=== PATIENT | male | born 1995 | race Caucasian/White ===

== ENCOUNTER 2021-12-26 12:28 | Emergency (ER) | payer OTHER, SELFPAY ==
[2021-12-26 12:36] VITALS: BP 148/79; PULSE 82; RESP 16; TEMP 36.5; O2SAT 100
--- NOTE | 2021-12-26 13:45 | ED.EAR ---
HPI - Ear Problem General Chief complaint: Ear Stated complaint: Ear Pain Time Seen by Provider: 12/26/21 13:36 Source: patient Mode of arrival: ambulatory Limitations: no limitations History of Present Illness HPI Narrative: Patient presents today complaining of right ear pain since this morning with absent hearing. Denies drainage. States he has had some upper respiratory symptoms since last week as well. Currently rates his ear pain 10/10 and has been taking Aleve with mild relief. Related Data Allergies Allergy/AdvReac Type Severity Reaction Status Date / Time No Known Allergies Allergy Verified 12/26/21 12:49 Review of Systems Review of Systems: CONSTITUTIONAL: Denies body aches, fever, chills, or sweats. EYES: Denies visual changes, redness, or discharge. ENT: Denies rhinorrhea, congestion, sore throat. + Right ear pain, absent hearing CARDIOVASCULAR: Denies chest pain, palpitations, or edema. RESPIRATORY: Denies cough or dyspnea. GASTROINTESTINAL: Denies abdominal pain, nausea, vomiting, or diarrhea. GENITOURINARY: Denies dysuria or hematuria. SKIN: Denies rash, itching, or wounds. MUSCULOSKELETAL: Denies back pain, joint pain, or myalgia. NEUROLOGIC: Denies headache, numbness, tingling, or weakness. PSYCH: Denies depression or anxiety. PMFSH Comments At time of signature, I have reviewed and agree with nursing past medical, surgical, social and family history unless otherwise noted. Please see nursing chart for further information. There is no relevant family history pertinent to the presenting complaint Exam Narrative: GENERAL: Well-appearing, well-nourished, and in no acute distress. HEAD: Normocephalic, atraumatic. EYES: EOMI. No redness or drainage. Conjunctivae normal. ENT: Mucous membranes pink and moist. Nares clear. No rhinorrhea. Left TM normal. Right TM erythematous and bulging with purulent material. NECK: Normal AROM. CHEST: No respiratory distress. EXTREMITIES: Normal range of motion. No edema. SKIN: Warm, dry, no rash. Capillary refill normal. Normal skin turgor. NEURO: No focal deficits. Alert and oriented x3. Gait steady. PSYCH: Normal affect. No signs of depression or anxiety. Course Course Level of Care: Express Care Visit Vital Signs Vital signs: Vital Signs Temperature 97.7 F 12/26/21 12:36 Pulse Rate 82 12/26/21 12:36 Respiratory Rate 16 12/26/21 12:36 Blood Pressure 148/79 H 12/26/21 12:36 Pulse Oximetry 100 12/26/21 12:36 Oxygen Delivery Room Air 12/26/21 12:36 Temperature 97.7 F 12/26/21 12:36 Pulse Rate 82 12/26/21 12:36 Respiratory Rate 16 12/26/21 12:36 Blood Pressure 148/79 H 12/26/21 12:36 Pulse Oximetry 100 12/26/21 12:36 Oxygen Delivery Room Air 12/26/21 12:36 Reviewed. Pt has been instructed to follow up with his PCP regarding his elevated blood pressure today. Medical Decision Making Differential Diagnosis Differential Diagnosis: Otitis media, otitis externa, ruptured TM, serous otitis, eustachian tube dysfunction, cerumen impaction, URI Vital Signs Vital Signs: Vital Signs Temperature 97.7 F 12/26/21 12:36 Pulse Rate 82 12/26/21 12:36 Respiratory Rate 16 12/26/21 12:36 Blood Pressure 148/79 H 12/26/21 12:36 Pulse Oximetry 100 12/26/21 12:36 Oxygen Delivery Room Air 12/26/21 12:36 Temperature 97.7 F 12/26/21 12:36 Pulse Rate 82 12/26/21 12:36 Respiratory Rate 16 12/26/21 12:36 Blood Pressure 148/79 H 12/26/21 12:36 Pulse Oximetry 100 12/26/21 12:36 Oxygen Delivery Room Air 12/26/21 12:36 Critical Care Time Critical Care Time Critical Care Time: No Discharge Plan Discharge Clinical Impression: Acute suppur right otitis media w/o spontan rupture tympanic membrane Patient Disposition: Home, Self-Care Condition: Stable Instructions: Antibiotic Form, Ear Infection (ED) Additional Instructions: You have been diagnosed with a right-sided e
== END 2021-12-26 13:55 | disposition home or self-care (01) ==
PROVIDERS: Emergency Provider Nurse Practitioner; PCP Family Medicine
DX: H66.001 Acute suppurative otitis media without spontaneous rupture of ear drum, right ear (principal)
CPT/HCPCS: 99213; G0463

== ENCOUNTER 2022-03-16 07:45 | Outpatient (CLI) | payer OTHER, SELFPAY ==
--- NOTE | 2022-03-29 18:45 | WPDHOMESLEEP ---
Sleep Study - Home Unattended Date of Study: 03/16/22 Ordering Provider: Nicki Leo, SALES PROMOTION COORDINATOR Interpreting Provider: Shelly Rogers, DO Home Sleep Study Type: Watch PAT Height: 1.96 m Weight: 133.81 kg Body Mass Index: 34.9 Neck Circumference (inches): 18.5 [place]: 5 Reason for Sleep Study Unrefreshing sleep Sleep History The patient is a 26-year-old male with hypertension, GERD and seasonal allergies that had a sleep study ordered by his primary care for evaluation of sleep apnea. 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 The patient denies awakening from sleep short of breath. He rarely awakens at night with heartburn, belching or cough. He frequently snores and is occasionally loud enough that others complain. He frequently has trouble sleeping when he has a cold. He denies waking up gasping for air throughout the night. He occasionally has breathing problems at night observed by himself or others. He denies sweating excessively at night. He rarely has heart palpitations or irregular heartbeats during the night. He rarely falls asleep during the day and never while driving. He denies cataplexy and hypnagogic / hypnopompic hallucinations. He rarely has trouble at school or work due to sleepiness. He rarely feels unable to move while waking up or falling asleep. He denies feeling afraid of going to sleep. He rarely has nightmares. He rarely remembers his dreams. He rarely has thoughts racing through his mind. He occasionally feels sad, depressed or anxious. He rarely has muscular tension. He occasionally notices parts of his body jerk. He denies kicking during the night. He denies having crawling and aching feelings in his legs as well as leg pain during the night. He denies grinding his teeth during sleep and awakening with morning jaw pain. He is occasionally bothered by pain during the day but denies being awakened by pain during the night. He occasionally wakes up feeling stiff in the morning. He rarely wakes up with sore achy muscles. He occasionally wakes up with pain in the neck, spine or other joints. He goes to bed at 9:30 p.m. on weekdays and at 10:30 p.m. on the weekends. It takes him 10 minutes to fall asleep. He wakes up 3-5 times throughout the night for unknown reasons. He is able to fall back asleep within a few minutes. He wakes up at 5:30 a.m. on weekdays between 5-6 a.m. on the weekends. He typically gets 6-7 hours of sleep per night. He will stay in bed for few minutes after waking up in the morning. He currently lives with his and 2-year-old child. He does not consume any caffeinated beverages within 2 hours of bedtime. He does not engage in physical exercise before bedtime. He will watch television before falling asleep. He denies taking naps in the afternoon or the evening. He drinks 20 oz of coffee per day. He denies tobacco, alcohol and recreational drug use. [facility] Past Medical History Medical History GERD (gastroesophageal reflux disease) Hypertension Medications Home Medications Medication Instructions Recorded Confirmed Type amoxicillin 875 mg-potassium 1 tablet PO Q12H 10 days #20 tabs 12/26/21 Rx clavulanate 125 mg tablet Sleep Procedure The sleep study was completed using WittlebeePAT a technically adequate device with seven channels: peripheral arterial tone, actigraphy, body position, snore, respiratory movement, pulse oximetry, sleep staging, and heart rate. Prior to using the device, the patient received verbal and written instructions for its application and was provided with the help desk phone number for additional telephonic instruction with 24-hour availability of qualified personnel to answer questions. The study was scored using [facility] guidelines. Sleep Architecture The patient had a total recording time of 8 hours 13 minutes and total sleep time of 7 hours 1 minute. The sleep efficiency w
[2022-03-29 18:55] VITALS: BMI 34.9
--- NOTE | 2022-06-24 07:54 | SLEEP ---
pt is struggling with machine
--- NOTE | 2022-08-24 14:01 | SLEEP ---
pt cannot tolerate pap therapy pt is considering a mouth guard for therapy
== END 2022-03-24 13:42 | disposition home or self-care (01) ==
PROVIDERS: PCP Family Medicine; Visit Provider Nurse Practitioner Adult Health
DX: G47.9 Sleep disorder, unspecified (principal); G47.33 Obstructive sleep apnea (adult) (pediatric)
CPT/HCPCS: 95800

== ENCOUNTER 2022-08-11 16:26 | Emergency (ER) | payer OTHER, SELFPAY ==
[2022-08-11 16:40] VITALS: BP 139/77; PULSE 92; RESP 12; TEMP 37.4; O2SAT 100
--- NOTE | 2022-08-11 16:52 | ED.EXTPRO ---
HPI - Extremity Problem General Chief complaint: Extremity Injury, Lower Stated complaint: Right Knee/Leg Pain Time Seen by Provider: 08/11/22 16:53 Source: patient, RN notes reviewed and old records reviewed Mode of arrival: ambulatory Limitations: no limitations History of Present Illness HPI Narrative: 27-year-old male presents to the [facility] with complaints of a bruise to the right rosas. States he noticed it about a week ago. Denies any injury. Full range of motion noted to the knee, ankle. Positive pedal pulse. Sensation intact to all 5 toes. Cap refill under 2 seconds Related Data Home Medications Medication Instructions Recorded Confirmed lisinopril 5 mg tablet 5 mg DAILY 08/11/22 08/11/22 Allergies Allergy/AdvReac Type Severity Reaction Status Date / Time No Known Allergies Allergy Verified 08/11/22 16:40 Review of Systems Review of Systems: All systems reviewed & are unremarkable except as noted in HPI and below Constitutional: Constitutional: Reports no additional constitutional complaints Eyes: Eyes: Reports no additional eye complaints ENT: Reports system reviewed and no additional complaints, except as documented Cardiovascular: Cardiovascular: Reports no additional cardiovascular complaints, Denies chest pain and Denies dyspnea Respiratory: Respiratory: Reports no additional respiratory complaints, Denies chest congestion, Denies cough and Denies dyspnea Gastrointestinal: Gastrointestinal: Reports no additional gastrointestinal complaints, Denies abdominal pain, Denies nausea and Denies vomiting Musculoskeletal: Musculoskeletal: Reports no additional musculoskeletal complaints Integumentary/Breasts: Skin/Breast: Reports as per HPI Neurologic: Reports system reviewed and no additional complaints, except as documented Psychiatric: Psychiatric: Reports no additional psychiatric complaints Allergic/Immunologic: Allergic/Immunologic: Reports no additional allergic/immunologic complaints [facility] Past Medical History Medical History GERD (gastroesophageal reflux disease) Hypertension Comments At the time of my signature, I reviewed and agree with the nursing past medical, surgical, social, and family history. There is no relevant family history pertinent to the patient complaint. Exam Const: General: cooperative, healthy appearing, comfortable, no acute distress, well developed, alert and well nourished Nutritional Appearance: well nourished and obese Orientation/consciousness: patient oriented x3 Limitations: no limitations HENMT: Head: normal to inspection Ears: hearing grossly normal bilaterally and external ears normal Face/Nose/Sinus: Normal external nose present, Normal nares present, Normal nasal mucous membranes and turbinates present and normal facial exam Face and sinus: normal facial exam Mouth: Yes Normal oral and palatal mucosa present, Yes lip normal and Yes moist mucous membranes Throat: posterior oropharynx normal and uvula midline Eyes: General: appearance normal, both eyes and all related structures Alignment and Position: alignment normal Periorbital: periorbital findings normal Conjunctivae: conjunctivae normal Pupils: Equal, round and reactive pupils present EOM: EOMs intact bilaterally Neck: Neck: normal visual inspection, full ROM, no lymphadenopathy and no meningeal signs Chest: Chest palpation & inspection: normal inspection of the chest Resp: Effort & Inspection: normal respiratory effort and able to speak in complete sentences Auscultation: clear to auscultation bilaterally, no crackles, no rales, no rhonchi and no wheezes Cardio: Rate: regular rate Rhythm: regular rhythm Back/Spine/Pelvis: Cervical Spine: cervical ROM normal Thoracic/Lumbar Spine: No thoracic spinal tenderness Skin: General skin exam: normal color and no rashes or lesions noted Lesions: no lesions Rashes: no rashes Wounds: n
== END 2022-08-11 17:08 | disposition home or self-care (01) ==
PROVIDERS: Emergency Provider Nurse Practitioner; PCP Physician Assistant
DX: S80.11XA Contusion of right lower leg, initial encounter (principal); X58.XXXA Exposure to other specified factors, initial encounter; K21.9 Gastro-esophageal reflux disease without esophagitis; I10 Essential (primary) hypertension
CPT/HCPCS: 99212; G0463

== ENCOUNTER 2023-02-11 06:56 | Outpatient (CLI) | payer OTHER, SELFPAY ==
--- NOTE | ~2023-02-11 | XR_ITS ---
XR chest 2V DATE: 02/11/2023 07:13 INDICATION: Shortness of breath, managed high blood pressure. TECHNIQUE: PA and lateral views COMPARISON: None FINDINGS: Normal heart size. No hilar or mediastinal enlargement. No pulmonary infiltrate or consolid ation, pleural effusion or pulmonary vascular congestion or pneumothorax. Included skeletal structures are unremarkable. IMPRESSION: Negative Reviewed, dictated and finalized at location A. IMPRESSION: Negative
[2023-02-11 07:20] LABS: Hematocrit 40.9 % (42.0-52.0); Hemoglobin 13.7 g/dL (14.0-18.0); Mean Corpuscular HGB Conc 33.5 g/dl (32-36); Mean Corpuscular Hemoglobin 32.6 pg (26-34); Mean Corpuscular Volume 97.4 fl (80-100); Platelet Count Result 254 k/mm3 (150-375); Red Cell Distribution Width 12.5 % (11.5-14.5); White Blood Count 6.8 K/mm3 (4.5-10.0)
[2023-02-11 07:21] LABS: Basophils Percent Auto 0.4 % (0.2-1.2); Eosinophils Absolute Auto 0.2 K/mm3 (0-0.3); Eosinophils Percent Auto 2.3 % (0-4.4); Immature Granulocyte Absolute 0.03 K/mm3 (0.00-0.031); Immature Granulocyte Percent A 0.4 % (0-0.5); Lymphocytes Absolute Auto 1.82 K/mm3 (0.9-3.2); Lymphocytes Percent Auto 26.7 % (18.3-44.2); Monocytes Absolute Auto 0.5 K/mm3 (0.1-0.6); Monocytes Percent Auto 7.3 % (2.6-8.5); Neutrophils Absolute Auto 4.3 K/mm3 (1.3-6.7); Neutrophils Percent Auto 62.9 % (45.5-73.1)
[2023-02-11 07:33] LABS: Alanine Aminotransferase 29 U/L (6-50); Albumin Level 4.3 g/dL (3.5-5.1); Alkaline Phosphatase 49 U/L (38-126); Anion Gap 7 mmol/L (8-16); Aspartate Amino Transferase 29 U/L (17-59); Bilirubin,Total 1.1 mg/dL (0.2-1.3); Blood Urea Nitrogen 13 mg/dL (9-20); Calcium 8.8 mg/dL (8.4-10.2); Carbon Dioxide 28 mmol/L (22-30); Chloride 103 mmol/L (98-107); Cholesterol 143 mg/dL (0-200); Estimated Glomerular Filt Rate > 60; Glucose 94 mg/dL (65-110); HDL Direct 37 mg/dL; Potassium 3.9 mmol/L (3.4-5.0); Sodium 138 mmol/L (137-145); Triglycerides 86 mg/dL (<150)
[2023-02-11 07:44] LABS: LDL Cholesterol Direct 82 mg/dL
[2023-02-11 08:37] LABS: Folic Acid 17.5 ng/mL (2.76->20)
== END 2023-02-11 06:57 | disposition home or self-care (01) ==
PROVIDERS: PCP Nurse Practitioner Adult Health; Visit Provider Nurse Practitioner Adult Health
DX: R06.02 Shortness of breath (principal); I10 Essential (primary) hypertension; E53.8 Deficiency of other specified B group vitamins
CPT/HCPCS: 36415; 71046; 80053; 80061; 82607; 82746; 84443; 85025

== ENCOUNTER 2023-03-08 14:53 | Outpatient (CLI) | payer OTHER, SELFPAY ==
--- NOTE | 2023-03-08 16:26 | WPDPFTINT ---
PFT Procedure Performed PFT Procedure Performed Spirometry with Pre/Post Bronchodilator Plethysmography (Lung Vol) Diffusing Cap (DLCO) Flow Vol Loop PFT Interpretation This is a pulmonary function test with spirometry, plethysmography and diffusing capacity. The test was performed and results interpreted in accordance with the 2019 and 2005 ATS/ERS Task Force guidelines respectively using the Global Lung Function Initiative-2012 reference equations. Patient demonstrated good effort and cooperation. Reproducibility criteria were met. The quality of the spirometry maneuver was Grade A. Findings: Spirometry: The contour the inspiratory and expiratory flow tracing are normal. The FVC is 6.56 L, 95% predicted. The FEV1 is 5.02 L, 90% predicted. The FEV1: FVC ratio 77%. Plethysmography: The total lung capacity is 8.87 L, 106% predicted. The functional residual capacity is 3.44 L, 81% predicted. The residual volume is 2.31 L, 116% predicted. Diffusing capacity: The diffusing capacity unadjusted for hemoglobin and carboxyhemoglobin is 45.5, 118% predicted. The diffusing capacity adjusted for alveolar volume is 5.85, 122% predicted. Impression: The spirometry is normal without evidence of an obstructive abnormality. The lung volumes are normal. The diffusing capacity is normal. There are no prior studies for comparison
== END 2023-03-08 14:54 | disposition home or self-care (01) ==
LOC: ANHPFT 14:54
PROVIDERS: PCP Nurse Practitioner Adult Health; Visit Provider Nurse Practitioner Adult Health
DX: R06.02 Shortness of breath (principal)
CPT/HCPCS: 94375; 94726; 94729

== ENCOUNTER 2024-02-13 08:36 | Outpatient (CLI) | payer OTHER, SELFPAY ==
[2024-02-13 18:54] LABS: Basophils Percent Auto 0.6 % (0.2-1.2); Eosinophils Absolute Auto 0.1 K/mm3 (0-0.3); Eosinophils Percent Auto 1.6 % (0-4.4); Hematocrit 46.3 % (42.0-52.0); Hemoglobin 15.3 g/dL (14.0-18.0); Immature Granulocyte Absolute 0.04 K/mm3 (0.00-0.031); Immature Granulocyte Percent A 0.6 % (0-0.5); Lymphocytes Absolute Auto 1.58 K/mm3 (0.9-3.2); Lymphocytes Percent Auto 22.7 % (18.3-44.2); Mean Corpuscular Hemoglobin 33.6 pg (26-34); Mean Corpuscular Volume 101.8 fl (80-100); Mean Platelet Volume 10.9 fl (7.4-10.4); Monocytes Absolute Auto 0.4 K/mm3 (0.1-0.6); Neutrophils Absolute Auto 4.8 K/mm3 (1.3-6.7); Neutrophils Percent Auto 68.5 % (45.5-73.1); Platelet Count Result 270 k/mm3 (150-375); Red Blood Count 4.55 M/mm3 (4.6-6.20); Red Cell Distribution Width 13.4 % (11.5-14.5)
[2024-02-13 19:35] LABS: Alanine Aminotransferase 28 U/L (6-50); Albumin Level 4.6 g/dL (3.5-5.1); Alkaline Phosphatase 57 U/L (38-126); Anion Gap 10 mmol/L (4-12); Aspartate Amino Transferase 70 U/L (17-59); Bilirubin,Total 0.6 mg/dL (0.2-1.3); Blood Urea Nitrogen 12 mg/dL (9-20); Calcium 9.5 mg/dL (8.4-10.2); Carbon Dioxide 27 mmol/L (22-30); Chloride 101 mmol/L (98-107); Cholesterol 147 mg/dL (0-200); Estimated Glomerular Filt Rate > 60; Glucose 90 mg/dL (65-110); HDL Direct 41 mg/dL; Magnesium 2.1 mg/dL (1.6-2.3); Potassium 4.3 mmol/L (3.4-5.0); Sodium 138 mmol/L (137-145); Triglycerides 87 mg/dL (<150)
[2024-02-13 19:46] LABS: LDL Cholesterol Direct 77 mg/dL
[2024-02-13 20:43] LABS: Hemoglobin A1C 4.9 % (<5.7)
== END 2024-02-13 08:37 | disposition home or self-care (01) ==
PROVIDERS: PCP Nurse Practitioner Adult Health; Visit Provider Nurse Practitioner Adult Health
DX: E53.8 Deficiency of other specified B group vitamins (principal); I10 Essential (primary) hypertension; E66.9 Obesity, unspecified
CPT/HCPCS: 36415; 80053; 80061; 82607; 83036; 83735; 84443; 85025

== ENCOUNTER 2024-11-09 22:07 | Emergency (ER) | payer OTHER, SELFPAY ==
[2024-11-09 22:08] VITALS: BP 158/88; PULSE 107; RESP 16; TEMP 36.3; O2SAT 100
--- OUTSIDE RECORDS SUMMARY | 2024-11-09 22:10 | XMS_ITS | Clinical Summary ---
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 CLERK Gender Identity Not on file Sexual Orientation Not on file Last Filed Vital Signs Vital Sign Reading Time Taken Comments Blood Pressure 148/85 10/08/2022 8:00 PM CDT Pulse 85 10/08/2022 8:00 PM CDT Temperature 37.1 C (98.7 F) 10/08/2022 6:20 PM CDT Respiratory Rate 23 10/08/2022 8:00 PM CDT Oxygen Saturation 99% 10/08/2022 8:00 PM CDT Inhaled Oxygen Concentration - - Weight 138.1 kg (304 lb 7.3 oz) 10/08/2022 5:06 PM CDT Height 195.6 cm (6' 5 ) 10/08/2022 5:06 PM CDT Body Mass Index 36.1 10/08/2022 5:06 PM CDT Plan of Treatment Health Maintenance Due Date Last Done Comments Depression Screening 1995 Hepatitis C Screening 1995 Varicella Vaccines (1 of 2 - 13+ 2-dose series) 2006 Regular Well Visit/Exam 18-64 2011 Influenza Vaccine (Season Ended) 2025 DTaP/Tdap/Td Vaccine (7 - Td or Tdap) 08/10/2029 08/10/2019, 01/28/2008, 09/08/1994, Additional history exists Hepatitis B Screening Completed 02/04/1994, 994 HPV Vaccines Aged Out No longer eligi ble based on patient's age to complete this topic Pneumococcal vaccine <65 Aged Out No longer eligible based on patient's age to complete this topic Insurance [facility] CHOICE PLUS [facility] CHOICE PLUS Care Teams Hydrotreater Operator Relationship Specialty Start Date End Date Sangeetha Mahan PA [address] [place] [address] [place] [address] PCP - General 10/08/22
--- OUTSIDE RECORDS SUMMARY | 2024-11-09 22:10 | XMS_ITS | Clinical Summary ---
Author Organization [facility] Care Team Providers Care Vp Ancillary Name Role Phone Unavailable Primary Care Provider Unavailabl e Social History Tobacco Use Types Packs/Day Years Used Date Smoking Tobacco: Never Assessed Sex and Gender Information Value Date Recorded Sex Assigned at Not on file Legal Sex Male 8:00 AM CDT Gender Identity Not on file Sexual Orientation Not on file Plan of Treatment Health Maintenance Due Date Last Done Comments Hepatitis C Virus (HCV) Screening 1995 Hepatitis B Immunization (3 of 3 - 3-dose series) 04/01/1994 02/04/1994, 1993 Influenza Immunization (#1) 2024 SARS-COV-2 Immunization ( season) 2024 Respiratory Syncytial Virus (RSV) Immunization (Adult) (1 - 1-dose 75+ series) 2068 Meningococcal Immunization (ACWY) Aged Out 01/28/2008 No longer eligible based on patient's age to complete this topic DTaP/Tdap/Td Immunization Discontinued 2019, 01/28/2008, 09/08/1994, Additional history exists TdaP Immunization Completed 08/10/2019, 01/28/2008 Pneumococcal Immunization Combined Aged Out No longer eligible based on patient's age to complete this topic Rotavirus Immunization Aged Out No lo nger eligible based on patient's age to complete this topic
--- OUTSIDE RECORDS SUMMARY | 2024-11-09 22:10 | XMS_ITS ---
Author Organization [facility] Address [address] [place], [place] [id number] Care Team Providers Care Animal Herder Name Role Phone MAMTA Baptiste Unavailable [phone] Jackson Thomason Unavailable Unavailable LATRICE HERRERA Unavailable [phone] REASON FOR VISIT ft doing well Encounters Encounter Location Date Provider Diagnosis [facility] [place] [address] [place], [place] [id number] 12/04/2023 LATRICE HERRERA Plan Of Treatment No Information Progress Notes * ZAYRA SAMANIEGODOB:1995 (29 yo M)Acc No.[id number]:12/04/2023 Patient: ZAYRA GUERRERO Provider: Chase Herrera DPM :1995 A ge:28 Y S ex:Male Date:12/04/2023 Address:[address] [place], [place] [id number] Subjective: * Chief Complaints: * 1 . Ft doing well. * Medical History: Objective: * Vitals: Assessment: Plan: * Treatment: * Billing Information: * Visit Code: * Procedure Codes: * Electronic signature of LATRICE HERRERA DPM on 11/09/2024 at 10:09 PM CDT Sign off status: Pending * Provider: Chase Herrera DPM Date: 12/04/2023 Generated for Printi ng/Faxing/eTransmitting on: 11/09/2024 10:09 PM CDT
--- OUTSIDE RECORDS SUMMARY | 2024-11-09 22:10 | XMS_ITS | Data Portability ---
Author Organization [place] - [employer], Main Office Address [address] [place] [address] Assessment No assessment recorded. Plan of Treatment Reminders Order Date Submit Date Provider Last Modified By Organization Details Last Modified Time Details Appointments None recorded. Lab vitamin B12 + folate, serum or blood 023 023 [id number] [facility] (Lab), [address] [place], [address], 09:03:20 Referral None recorded. Procedures None recorded. Surgeries None recorded. Imaging None recorded. Medication Orders None recorded. Patient TargetsNo targets recorded. Patient InstructionsNo instructions recorded. Reason for Referral None Reported. Results Created Date Observation Date Name Description Value Unit Range Abnormal Flag Note LastModifiedBy Organization Detail LastModifiedTime 02/04/20 22 02/04/2022 VITAM IN B12/F OLATE , SERUM PANEL vitamin B12 299 pg/mL 200-11 00 normal Pleas e Note: Altho ugh the refer ence range for vitam in B12 is 200-1 100 pg/mL , it has been repor lesli that betwe en 5 and 10% of patie nts with value s betwe en 200 and 400 pg/mL may exper ience neuro psych iatri c and hemat ologi c abnor malit ies due to occul t B12 defic iency ; less than 1% of patie nts with value s above 400 pg/mL will have sympt oms. Not Available [employer] [facility] [address], [place], [address], 02/04/2022 07:10:16 02/04/20 22 02/04/2022 VITAM IN B12/F OLATE , SERUM PANEL folate, serum 11.8 NG/mL normal Refer ence Range Low: <3.4 Borde rline : 3.4-5 .4 Karlene l: >5.4 Not Available [address], [address], 02/04/2022 07:10:16 02/04/20 22 02/04/2022 TSH TSH 2.44 mIU/L 0.40-4 .50 normal Not Available [address], [address], 02/04/2022 07:10:15 02/04/20 22 02/04/2022 CBC (INCL UDES DIFF/ PLT) white blood cell count 9.6 thous and/u L 3.8-10 .8 normal Not Available [address], [address], 02/04/2022 07:10:15 02/04/20 22 02/04/2022 CBC (INCL UDES DIFF/ PLT) red blood cell count 4.68 donald on/uL 4.20-5 .80 normal Not Available [address], [address], 02/04/2022 07:10:15 02/04/20 22 02/04/2022 CBC (INCL UDES DIFF/ PLT) hemoglobin 15.0 g/dL 13.2-1 7.1 normal Not Available [address], [address], 02/04/2022 07:10:15 02/04/20 22 02/04/2022 CBC (INCL UDES DIFF/ PLT) hematocrit 45.2 % 38.5-5 0.0 normal Not Available [address], [address], 02/04/2022 07:10:15 02/04/20 22 02/04/2022 CBC (INCL UDES DIFF/ PLT) MCV 96.6 fL 80.0-1 00.0 normal Not Available [address], [address], 02/04/2022 07:10:15 02/04/20 22 02/04/2022 CBC (INCL UDES DIFF/ PLT) MCH 32.1 pg 27.0-3 3.0 normal Not Available [address], [address], 02/04/2022 07:10:15 02/04/20 22 02/04/2022 CBC (INCL UDES DIFF/ PLT) MCHC 33.2 g/dL 32.0-3 6.0 normal Not Available [address], [address], 02/04/2022 07:10:15 02/04/20 22 02/04/2022 CBC (INCL UDES DIFF/ PLT) RDW 12.4 % 11.0-1 5.0 normal Not Available [address], [address], 02/04/2022 07:10:15 02/04/20 22 02/04/2022 CBC (INCL UDES DIFF/ PLT) platelet count 281 thous and/u L 140-40 0 normal Not Available [address], [address], 02/04/2022 07:10:15 02/04/20 22 02/04/2022 CBC (INCL UDES DIFF/ PLT) MPV 10.8 fL 7.5-12 .5 normal Not Available [address], [address], 02/04/2022 07:10:15 02/04/20 22 02/04/2022 CBC (INCL UDES DIFF/ PLT) absolute neutrophils 6979 cells /uL 1500-7 800 normal Not Available [address], [address], 02/04/2022 07:10:15 02/04/20 22 02/04/2022 CBC (INCL UDES DIFF/ PLT) absolute lymphocytes 2026 cells /uL 850-39 00 normal Not Available [address], [address], 02/04/2022 07:10:15 02/04/20 22 02/04/2022 CBC (INCL UDES DIFF/ PLT) absolute monocytes 509 cells /uL 200-95 0 normal Not Available [address], [address], 02/04/2022 07:10:15 02/04/20 22 02/04/2022 CBC (INCL UDES DIFF/ PLT) absolute eosinophils 58 cells /uL 15-500 normal Not Available [address], [address], 02/04/2022 07:10:15 02/04/20 22 02/04/2022 CBC (INCL UDES DIFF/ PLT) absolute basophils 29 cells /uL 0-200 normal Not Available [address], [address], 02/04/2022 07:10:15 02/04/20 22 02/04/2022 CBC (INCL UDES DIFF/ PLT) neutrophils 72.7 % normal Not Available [address], [address], 02/04/2022 07:10:15 02/04/20 22 02/04/2022 CBC (INCL UDES DIFF/ PLT) lymphocytes 21.1 % normal Not Available [address], [address], 02/04/2022 07:10:15 02/04/20 22 02/04/2022 CBC (INCL UDES DIFF/ PLT) monocytes 5.3 % normal Not Available [address], [address], 02/04/2022 07:10:15 02/04/20 22 02/04/2022 CBC (INCL UDES DIFF/ PLT) eosinophils 0.6 % normal Not Available [address], [address], 02/04/2022 07:10:15 02/04/20 22 02/04/2022 CBC (INCL UDES DIFF/ PLT) basophils 0.3 % normal Not Available [address], [address], 02/04/2022 07:10:15 02/04/20 22 02/04/2022 LIPID PANEL , STAND REYNALDO cholesterol, total 158 mg/dL <200 normal Not Available [address], [address], 02/04/2022 07:10:13 02/04/20 22 02/04/2022 LIPID PANEL , STAND REYNALDO HDL cholesterol 47 mg/dL > or = 40 normal Not Available [address], [address], 02/04/2022 07:10:13 02/04/20 22 02/04/2022 LIPID PANEL , STAND REYNALDO triglyceride s 60 mg/dL <150 normal Not Available [address], [address], 02/04/2022 07:10:13 02/04/20 22 02/04/2022 LIPID PANEL , STAND REYNALDO LDL-choleste rol 96 mg/dL _(yogehs c) normal Refer ence range : <100 Jaime able range <100 mg/dL for prima ry preve ntion ; <70 mg/dL for patie nts with CHD or diabe tic patie nts with > or = 2 CHD risk facto rs. LDL-C is now calcu lated using the Estela n-Hop saeed calcu rajesh n, which is a valid ated novel metho d provi mala dhillon r accur acy than the Fried sheldon equat ion in the estim ation of LDL-C . Estela n SS et al. STEPAN. 2013; 310(1 9): 2061- 2068 (http ://ed ucati on.[employer] Farzaneh zarinaPicodeon. [employer]/f aq/FA Q164) Not Available [facility] [address], [place], [address], 02/04/2022 07:10:13 02/04/20 22 02/04/2022 LIPID PANEL , STAND REYNALDO chol/HDLC ratio 3.4 (calc ) <5.0 normal Not Available [facility] [address], [place], [address], 02/04/2022 07:10:13 02/04/20 22 02/04/2022 LIPID PANEL , STAND REYNALDO non HDL cholesterol 111 mg/dL _(yogesh c) <130 normal For patie nts with diabe jolynn plus 1 major ASCVD risk facto r, treat ing to a non-H DL-C goal of <100 mg/dL (LDL- C of <70 mg/dL ) is consi mckenzied a malka woodo n. Not Available [facility] [address], [place], [address], 02/04/2022 07:10:13 05/02/20 22 03/16/2022 home sleep study No observ ation record ed. [id number] [facility] [address] [place], [address], 08/18/2022 01:28:15 Result Notes None recorded. Problems Name Problem SNOMED Code Status Onset Date Resolution Date Notes Provider Name and Address Organization Details Recorded Time Essential hypertension 29900762 Active 2021 Not Available [employer] 3 01:26:27 Sleep apnea 95302307 Active 2021 Not Available [employer] 3 01:26:27 Cobalamin deficiency 469378140 Active 2022 SHANNA Haynes [address] [place] [address], [address] , [facility] 3 08:32:32 Gastroesophag eal reflux disease 521398763 Active 2022 SHANNA Haynes [address] [address], [place], [address] , [facility] 3 08:42:33 Upper respiratory infection 11571982 Active 2022 SHANNA Haynes [address] [address], [place], [address] , [facility] [employer] [facility] 3 11:39:06 Problem Notes None recorded. Procedures Surgical History Date Name Laterality Status Provider Name and Address Organization Details Recorded Time tonsilectom y/adenoids completed Not Available [facility] 08/18/2022 01:25:17 Imaging Results Imaging Date Name Status LastModified by Organiz ation Details LastModified Time 03/16/2022 home sleep study completed [id number] [address] [place] [address] [facility] [address] [place], [address], 08/18/2022 01:28:15 Procedure Notes None recorded. Medical Equipment None Reported. Allergies No known drug allergies Medications Name Sig Start Date Stop Date Status Note LastModified by Organization Details LastModified Time BD Luer-Jossie Syringe 3 mL 25 x 1 1/2 INJECT DIRECTED PER B12 INSTRUCTI ONS active Not Available Not Available No t Available doxycycline hyclate 100 mg capsule TAKE 1 CAPSULE BY MOUTH TWICE DAILY FOR 7 DAYS 05/31 completed Not Available Not Available Not Available cetirizine 10 mg tablet TAKE 1 TABLET BY MOUTH 1 TIME PER DAY FOR 5 DAYS 06/03 completed Not Available Not Available Not Available azithromyci n 250 mg tablet TAKE 2 TABLETS (500 MG) BY ORAL ROUTE ONCE DAILY FOR 1 DAY THEN 1 TABLET (250 MG) BY ORAL ROUTE ONCE DAILY FOR 4 DAYS active Not Available Not Available No t Available Medrol (Brandin) 4 mg tablets in a dose pack Take as directed 05/31 completed Not Available Not Available Not Available prednisone 20 mg tablet TAKE 2 TABLETS BY MOUTH EVERY DAY FOR 5 DAYS active Not Available Not Available No t Available triamcinolo ne acetonide 0.025 % topical cream APPLY TOPICALLY TO THE AFFECTED AREA THREE TIMES DAILY FOR 5 DAYS active Not Available Not Available No t Available cyanocobala min (vit B-12) 1,000 mcg/mL injection solution ADMINISTE R 1 ML UNDER THE SKIN EVERY MONTH active Not Available Not Available No t Available BD Luer-Jossie Syringe 3 mL 25 gauge x 1 FOR USE WITH CYANOCOBA FAY INJECTION active Not Available Not Available No t Available omeprazole 20 mg capsule,del ayed release TAKE 1 CAPSULE BY MOUTH EVERY DAY active Not Available Not Available No t Available lisinopril 5 mg tablet TAKE 1 TABLET BY MOUTH EVERY DAY active Not Available Not Available No t Available fluticasone propionate 50 mcg/actuati on nasal spray,suspe nsion SHAKE LIQUID AND USE 1 SPRAY IN EACH NOSTRIL EVERY DAY active Not Available Not Available No t Available amoxicillin 875 mg-potassiu m clavulanate 125 mg tablet TAKE 1 TABLET BY MOUTH TWICE DAILY FOR 10 DAYS 02/02 completed Not Available Not Available Not Available Vitals Date Recorded Body mass index (BMI) Body height Oxygen saturation Oxygen saturation in Arterial blood by Pulse oximetry Heart rate Body temperature Body weight Systolic blood pressure Diastolic blood pressure Provider Name and Address Organization Details Last Updated DateTime 2 36.5 kg/m2 195.58 cm 97 % 97 % 84 /min 97.3 [degF] 324770. 45 g 144 mm[Hg] 84 mm[Hg] Not Available [facility] 3 01:26:09 Date Recorded Body mass index (BMI) Body height Oxygen saturation Oxygen saturation in Arterial blood by Pulse oximetry Heart rate Body temperature Body weight Systolic blood pressure Diastolic blood pressure Provider Name and Address Organization Details Last Updated DateTime 2 36.6 kg/m2 195.58 cm 99 % 99 % 74 /min 98.1 [degF] 964839. 04 g 128 mm[Hg] 76 mm[Hg] Not Available [facility] 3 01:26:09 Date Recorded Body height Body mass index (BMI) Body weight Body temperature Heart rate Oxygen saturation Oxygen saturation in Arterial blood by Pulse oximetry Systolic blood pressure Diastolic blood pressure Provider Name and Address Organization Details Last Updated DateTime 3 195.58 cm 36 kg/m2 800296. 08 g 96.1 [degF] 77 /min 99 % 99 % 120 mm[Hg] 80 mm[Hg] Tierra Estrada MA [place] [facility] 08:28:41 Social History Question Answer Notes LastModified by Organizat ion Details LastModified Time Tobacco Smoking Status Former Smoker Not Available [facility] 08/18/2022 01:24:39 What Is Your Level Of Caffeine Consumption? Moderate [id number] Information not available 08/18/2022 What Type Of Diet Are You Following? REGULAR [id number] Information not available 08/18/2022 What Is The Highest Grade Or Level Of School You Have Completed Or The Highest Degree You Have Received? [id number] 9086 Information not available 08/18/2022 Have There Been Any Changes To Your Family Or Social Situation? No [id number] Information not available 08/18/2022 Do You Use Insect Repellent Routinely? No [id number] 2602 Information not available 08/18/2022 Where Do You Live? [place]House [id number] 5786 Information not available 08/18/2022 Do You Have Any Pets? Yes [id number] Information not available 08/18/2022 What Is Your Relationship Status? [id number] Information not available 08/18/2022 Do You Use Your Seat Belt Or Car Seat Routinely? Yes [id number] 7435 Information not available 08/18/2022 Do You Have Smoke And Carbon Monoxide Detectors In Your Home? Yes [id number].[id number] 7970 Information not available 08/18/2022 Are You Passively Exposed To Smoke? No MIGRATION.799413 6508 Information not available 08/18/2022 Are There Any Smokers In Your House? No MIGRATION.[id number] 2426 Information not available 08/18/2022 Do You Participate In Social Media? Yes MIGRATION.[id number] 4776 Information not available 08/18/2022 Do You Use Sunscreen Routinely? No [id number].[id number] 0460 Information not available 08/18/2022 Has Tobacco Cessation Counseling Been Provided? No [email or web address] Information not available 09/26/2022 How Many Years Have You Smoked Tobacco? 2 MIGRATION.235154 6551 Information not available 08/18/2022 Are You Currently In School? No MIGRATION.[id number] 2117 Information not available 08/18/2022 Do You Have Any Dietary Restrictions? No MIGRATION.900877 3387 Information not available 08/18/2022 Sex: Male Functional Status Question Answer Note LastModified by Organizat ion Details LastModified Time Do you use any illicit or recreational drugs? No [email or web address] Information not available 09/26/2022 Do you or have you ever used any other forms of tobacco or nicotine? No [email or web address] Information not available 09/26/2022 What is your level of alcohol consumption? 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 Moderate MIGRATION.[id number] 26 Information not available 08/18/2022 Mental Status Question Answer Note LastModified by Organizat ion Details LastModified Time Do you feel stressed (tense, restless, nervous, or anxious, or unable to sleep at night)? [id number] 6 Information not available 08/18/2022 Family History Relationship Description Onset Age of this Age Resolved Age Notes LastModified by Organization Details LastModified Time Father Hypertensive disorder [id number] Not available 08/18/2022 01:25:21 Father Diabetes mellitus [id number] Not available 08/18/2022 01:25:21 Paternal Grandfather Coronary artery bypass graft [id number] [id number] Not available 08/18/2022 01:25:21 Paternal Grandmother Congestive heart failure [id number] Not available 08/18/2022 01:25:21 Medical History No medical history recorded. Past Encounters Encounter ID Performer Location Encounter Start Date Encounter Closed Date Diagnosis/Indication Diagnosis SNOMED-CT Code Diagnosis ICD10 Code Diagnosis Note [id number] [facility] Family Practice Marcelino diez [address] [place] [address] 02/02/2022 00:00:00 02/02/2022 17:40:09 [id number] SHANNA Haynes [facility] Primary Care [place] [facility] [address] [facility] [address] [place] [address] 06/03/2022 00:00:00 06/03/2022 08:46:37 [id number] SHANNA Haynes [facility] [place] [address] [address] [facility] [address] [place] [address] 09/26/2022 08:15:25 09/26/2022 08:50:51 Cobalamin deficiency 412168005 E53.8 Has been off injections since July.R echeck labs today. Essential hypertension 07509813 I10 Stable. Gastroesop hageal reflux disease 315400557 K21.9 Stable. Has not needed to take omeprazole . Health Concerns Section Related Observation LastModified by Organization Detai ls LastModified Time None Recorded Concern Status LastModified by Organization Details LastModified Time None Recorded Advance Directives Directive None Recorded Payers Encounter Date Sequence Insurance Name Policy Number Policy Leon Covered Member ID Leon Member ID Guarantor Name 09/26/2022 1 [facility] [id number] Juan Antonio Dey [id number] Juan Antonio Dey Notes Date Note Type Note Provider Name and Address Organization Details Recorded Time 09/26/2022 text/html Pt. here for routine follow-up. He needs B12 rechecked. Has been off supplement for last 2 months. SHANNA Haynes [address] [facility] [address], [place], [address], [facility] [employer] 09/26/2022 08:43:11
--- OUTSIDE RECORDS SUMMARY | 2024-11-09 22:10 | XMS_ITS | Patient Health Record ---
Author Organization [facility] Address [address] [place], [place] [id number] Care Team Providers Care Color Room Attendant Name Role Phone HemalathaMAMTA goode Unavailable [phone] Jackson Thomason Unavailable Unavailable LATRICE HERRERA Unavailable [phone] Allergies No Known Allergies Reason For Referral No Information Social History Tobacco Use: Social History Observation Description Date Details (start date - stop date) Unknown if ever smoked NA - NA Tobacco Control (Standard) Question Answer Notes Tobacco use: Unknown if ever smoked Plan Of Treatment No Information Insurance Providers Payer Name Payer Address Payer Phone Subscriber Number Group Number Insured Name Patient Relationship to Insured Coverage Start Date Coverage End Date [facility] [address] [address] [place] [address] [id number] ZAYRA SAMANIEGO Self - patient is the insured
--- OUTSIDE RECORDS SUMMARY | 2024-11-09 22:10 | XMS_ITS | Referral Summary ---
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
--- NOTE | 2024-11-09 22:32 | ED_ITS ---
HPI - Skin/Abscess/Foreign Bdy General Chief complaint: Skin/Abscess/Foreign Body Stated complaint: Abscess to neck Time Seen by Provider: 11/09/24 22:25 Source: patient Mode of arrival: ambulatory Limitations: no limitations History of Present Illness HPI narrative: Patient presents with concern for abscess posterior neck. He has gotten abscesses before but states normally they disappear spontaneously. He 1st noticed Monday it has been size and becoming painful. He visited urgent care yesterday was prescribed Bactrim antibiotic. He has taken 3 doses in total so far. He he took 2 Aleve today and admits to taking a Landis tablet yesterday that was left over inside a due to the pain he was having. He denies any fevers, chills intravenous drug use, or history of MRSA. Related Data Home Medications ?Medication ?Instructions ?Recorded ?Confirmed ?Last Taken ?Type Metamucil Fiber Pills BYMOUTH 02/09/23 02/13/24 Unknown History Allergies Allergy/AdvReac Type Severity Reaction Status Date / Time No Known Allergies Allergy Verified 02/13/24 08:06 [facility] Past Medical History Medical History (Updated 11/10/24 @ 00:30 by Renate Botello MD) Shortness of breath GERD (gastroesophageal reflux disease) Hypertension Acute suppur right otitis media w/o spontan rupture tympanic membrane Family History Family History (Updated 02/09/23 @ 15:08 by Gerri Bella MA) Father Diabetes mellitus Hypertension Sibling Diabetes mellitus Heart disease Grandparent Diabetes mellitus Grandparent Diabetes mellitus Hypertension Depression Social History Social History Smoking status: Never smoker Lack of Transportation: No Lack of Food: Never True Current Housing: I Have Housing Concerned About Future Housing: No Difficulty Paying Gas/Electric Bills: No Difficulty Paying for Meds: No Currently Unemployed: No Education: Associate Degree Difficulty w/ Childcare or Family Care: No Living arrangements: with family Additional living arrangements comments: and 2 children Gender identity (if verbalized by the patient): Male Agree to blood products: Yes Exam 2 Narrative: GENERAL: Well-appearing, well-nourished, and in no acute distress. HEAD: Normocephalic, atraumatic. EYES: Non injected, non icteric ENT: Nares clear, no rhinorrhea or epistaxis. Gross auditory acuity intact. NECK: Supple. No meningismus. CHEST: Speaking in full sentences. No respiratory distress. HEART: Regular rate and rhythm. . ABDOMEN: Soft, nondistended. No rigidity or guarding. Not peritoneal EXTREMITIES: Normal range of motion. No lower extremity edema. SKIN: Warm, dry. Small 1.5cmx1.5cm palpable abscess the left posterior neck inferior to the occiput, tender to palpation. Mild erythema. Not fluctuant or draining. NEURO: No focal deficits. Alert and oriented. Answering questions. Following commands. Normal speech without aphasia or dysarthria. PSYCH: Normal mood and affect. Course Vital Signs Vital signs: Vital Signs Temperature 97.4 F L 11/09/24 22:08 Pulse Rate 107 H 11/09/24 22:08 Respiratory Rate 16 11/09/24 22:08 Blood Pressure 158/88 H 11/09/24 22:08 Pulse Oximetry 100 11/09/24 22:08 Oxygen Delivery Room Air 11/09/24 22:08 Temperature 97.4 F L 11/09/24 22:08 Pulse Rate 72 11/10/24 03:01 Respiratory Rate 17 11/10/24 03:01 Blood Pressure 117/71 11/10/24 03:01 Pulse Oximetry 100 11/10/24 03:01 Oxygen Delivery Room Air 11/09/24 22:08 MDM - Skin/Abscess/Foreign Bdy MDM Narrative Medical decision making narrative: Patient presents with concern for a left neck abscess. He visited urgent care yesterday and has taken 3 doses of the Bactrim that he was prescribed so far. In the emergency department he is afebrile with vital signs notable for hypertension and mild tachycardia. Point of care ultrasound performed which does show infection / inflammation but without a distinct walled-off abscess that would be amenable to incision and drainage either by scalpel or by needle aspiration. Blood cultures deferred given low suspicion for bacteremia. He has a leukocytosis and a very mild normocytic anemia. Normal renal function as is ESR and CRP. Patient given IV vancomycin as a one time dose. Advised on warm compresses and will broaden antibiotic coverage PO to include cephalexin. Advised to continue taking Bactrim. Encouraged wound check by UC/PCP as it should hopefully be improving or, alternatively , more amenable to I&D in the future. Tachycardia has resolved. Stable for discharge. Differential Diagnosis Differential diagnosis: Likely abscess of skin or subcutaneous tissue, cellulitis, insect bites, impetigo and contact dermatitis Lab Data Attestation: I reviewed the patient's lab results. 11/09/24 23:45 11/09/24 23:45 Labs: Lab Results 11/09/24 Range/Units 23:45 WBC 14.6 H (4.5-10.0) K/mm3 RBC 4.21 L (4.6-6.20) M/mm3 Hgb 13.9 L (14.0-18.0) g/dL Hct 41.0 L (42.0-52.0) % MCV 97.4 (80-100) fl MCH 33.0 (26-34) pg MCHC 33.9 (32-36) g/dl RDW 12.6 (11.5-14.5) % Plt Count 254 (150-375) k/mm3 MPV 10.4 (7.4-10.4) fl Immature Gran % (Auto) 0.4 (0-0.5) % Neut % (Auto) 74.8 H (45.5-73.1) % Lymph % (Auto) 15.2 L (18.3-44.2) % [place] % (Auto) 7.9 (2.6-8.5) % Eos % (Auto) 1.3 (0-4.4) % Baso % (Auto) 0.4 (0.2-1.2) % Lymph # (Auto) 2.22 (0.9-3.2) K/mm3 [place] # (Auto) 1.2 H (0.1-0.6) K/mm3 Eos # (Auto) 0.2 (0-0.3) K/mm3 Baso # (Auto) 0.1 (0.0-0.1) K/mm3 Abs Immat Gran (auto) 0.06 H (0.00-0.031) K/mm3 Absolute Neuts (auto) 10.9 H (1.3-6.7) K/mm3 Absolute Nucleated RBC 0.000 (0.0-0.012) K/mm3 Nucleated RBC % 0.0 (0.0-0.2) % ESR 12 (0-20) mm/hr Sodium 138 (137-145) mmol/L Potassium 3.9 (3.4-5.0) mmol/L Chloride 106 (98-107) mmol/L Carbon Dioxide 24 (22-30) mmol/L Anion Gap 8 (4-12) mmol/L BUN 16 (9-20) mg/dL Creatinine 0.82 (0.7-1.3) mg/dL Estim Creat Clear Calc 167 ml/min Estimated GFR > 60 (59 - ) Glucose 88 (65-110) mg/dL Calcium 9.5 (8.4-10.2) mg/dL Total Bilirubin 0.3 (0.2-1.3) mg/dL AST 41 (17-59) U/L ALT 35 (6-50) U/L Alkaline Phosphatase 73 (38-126) U/L C-Reactive Protein 1.0 (<1.0) mg/dL Total Protein 7.0 (6.3-8.2) g/dL Albumin 4.4 (3.5-5.1) g/dL Discharge Plan Discharge Clinical Impression: Abscess of neck, Leukocytosis, Normocytic anemia Patient Disposition: Home Condition: Stable Instructions: Antibiotic Form, Leukocytosis (ED), Abscess (ED), Anemia (ED) Additional Instructions: As we discussed, this does appear to be forming an abscess however was not amenable to incision and drainage /needle aspiration today based on its appearance under ultrasound. You received a 1 time dose of IV antibiotics and you should continue taking the oral antibiotics you were initially prescribed with the addition of the other antibiotic prescribed. Use warm compresses. You can follow-up with your primary care physician or urgent care for a wound check as it will hopefully either be resolving or, alternatively, develop into an abscess that can be drained ( lanced ). Return to the emergency department with any new or worsening symptoms such as fever >100.4, shortness of breath, etc. Acetaminophen/Tylenol (maximum 4000 mg per day) is safe to take with NSAIDs (ibuprofen/Motrin) for pain relief. Patient Language: Vietnamese Prescriptions: New cephalexin 500 mg capsule 500 mg PO Q8H 5 Days Qty: 15 0RF ibuprofen 600 mg tablet 600 mg PO TID PRN (Reason: pain) Qty: 30 0RF acetaminophen 500 mg capsule 1,000 mg PO Q6H PRN (Reason: pain) Qty: 30 0RF No Action Metamucil Fiber Pills BYMOUTH Rx Instructions: 5 pills 3 times a day. albuterol sulfate 90 mcg/actuation HFA aerosol inhaler 2 inh inhalation Q4-6H PRN (Reason: shortness of breath or wheezing) Qty: 8.5 1RF lisinopril 5 mg tablet See Rx Instructions .ROUTE .COMPLEX Qty: 90 3RF Dose Instruction: TAKE 1 TABLET DAILY Rx Instructions: TAKE 1 TABLET DAILY Follow-up/Referrals: Nicki Leo APRN [Primary Care Provider] - Stand Alone Forms: Work/School Release IP Time of Disposition: 01:20
--- OUTSIDE RECORDS SUMMARY | 2024-11-09 22:46 | XMS_ITS | Clinical Summary ---
Author Organization [facility] Care Team Providers Care Transit Mixer Operator Name Role Phone Unavailable Primary Care Provider [...]
--- OUTSIDE RECORDS SUMMARY | 2024-11-09 22:46 | XMS_ITS | Clinical Summary ---
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
--- OUTSIDE RECORDS SUMMARY | 2024-11-09 22:46 | XMS_ITS | Referral Summary ---
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 Gender Identity Not on file Sexual Orientation [...] Plan of Treatment Not on file Insurance [facility] CHOICE [facility] H[facility]/PPO Address: [address] [address] [place] [address] [facility] CHOICE [facility] H[facility]/PPO Address: [address] [address] [place] [address] Care Teams Pitch Filler Relationship Specialty Start Date End Date Sangeetha Mahan PA [address] [place] [address] [place] [address] PCP - General 10/08/22
--- NOTE | 2024-11-09 23:13 | PC.NURSE ---
Report received from NISHI Walker. Assumed care of patient at this time.
--- NOTE | 2024-11-09 23:19 | PC.NURSE ---
discussed with Dr Botello and patient does not need blood cultures prior to iv antibiotic administration
[2024-11-09] MEDS: HYDROcodone/acetaminophen (*CRX) 5-325 MG TABLET 1 TAB PO (23:42)
[2024-11-10] VITALS (16 sets, daily range): BP systolic 91–128; BP diastolic 49–83; PULSE 66–72; RESP 17–18; O2SAT 95–100
[2024-11-10] LABS: Basophils Absolute Auto 0.1 K/mm3 (0.0-0.1); Basophils Percent Auto 0.4 % (0.2-1.2); Eosinophils Absolute Auto 0.2 K/mm3 (0-0.3); Eosinophils Percent Auto 1.3 % (0-4.4); Hemoglobin 13.9 g/dL (14.0-18.0); Immature Granulocyte Absolute 0.06 K/mm3 (0.00-0.031); Immature Granulocyte Percent A 0.4 % (0-0.5); Lymphocytes Absolute Auto 2.22 K/mm3 (0.9-3.2); Lymphocytes Percent Auto 15.2 % (18.3-44.2); Mean Corpuscular HGB Conc 33.9 g/dl (32-36); Mean Corpuscular Volume 97.4 fl (80-100); Mean Platelet Volume 10.4 fl (7.4-10.4); Monocytes Absolute Auto 1.2 K/mm3 (0.1-0.6); Monocytes Percent Auto 7.9 % (2.6-8.5); Neutrophils Absolute Auto 10.9 K/mm3 (1.3-6.7); Neutrophils Percent Auto 74.8 % (45.5-73.1); Platelet Count Result 254 k/mm3 (150-375); Red Blood Count 4.21 M/mm3 (4.6-6.20); Red Cell Distribution Width 12.6 % (11.5-14.5); White Blood Count 14.6 K/mm3 (4.5-10.0)
[2024-11-10 00:27] LABS: Alanine Aminotransferase 35 U/L (6-50); Albumin Level 4.4 g/dL (3.5-5.1); Alkaline Phosphatase 73 U/L (38-126); Anion Gap 8 mmol/L (4-12); Aspartate Amino Transferase 41 U/L (17-59); Bilirubin,Total 0.3 mg/dL (0.2-1.3); Blood Urea Nitrogen 16 mg/dL (9-20); Calcium 9.5 mg/dL (8.4-10.2); Carbon Dioxide 24 mmol/L (22-30); Chloride 106 mmol/L (98-107); Estimated CRCL calculation 167 ml/min; Estimated Glomerular Filt Rate > 60; Glucose 88 mg/dL (65-110); Potassium 3.9 mmol/L (3.4-5.0); Sodium 138 mmol/L (137-145)
[2024-11-10] MEDS: VANCOMYCIN 1,500 MG/NS 500 ML 1,500 MG/500 ML BAG 250 MG IVPB (00:46)
[2024-11-10 01:13] LABS: Erythrocyte Sedimentation Rate 12 mm/hr (0-20)
== END 2024-11-10 03:12 | disposition home or self-care (01) ==
PROVIDERS: Emergency Provider Student in an Organized Health Care Education/Training Program; PCP Nurse Practitioner Adult Health
DX: L02.11 Cutaneous abscess of neck (principal); D72.829 Elevated white blood cell count, unspecified; D64.9 Anemia, unspecified; K21.9 Gastro-esophageal reflux disease without esophagitis; I10 Essential (primary) hypertension
CPT/HCPCS: 36415; 80053; 85025; 85652; 86140; 96365; 96366; 99284; A9270; J3370

== ENCOUNTER 2024-11-11 09:58 | Emergency (ER) | payer OTHER, SELFPAY ==
--- NOTE | ~2024-11-11 | CT_ITS ---
CT soft tissue neck w con Ordering provider: Quincy Regalado MD History: 29 years Male with . Abscess neck left side posteriorly . Comparison: None. Technique: CT of the soft tissues of the neck was performed with intravenous contrast. The dose-lengt h product was 583.25 mGy-cm. Findings: LOWER HEAD: The visualized brain parenchyma, optic globes/orbits and mastoids are normal. The visua lized paranasal sinuses are well aerated. SALIVARY GLANDS: Unremarkable. THYROID: Symmetric. SUPRAHYOID DEEP SPACES: Unremarkable CAROTID ARTERIES: Unremarkable JUGULAR VEINS: Unremarkable TONSILS: Unremarkable ORAL CAVITY: Partially obscured by dental amalgam but normal as visualized. PHARYNX, LARYNX AND TRACHEA: Patent and normal. No prevertebral soft tissue swelling. SUPERFICIAL SOFT TISSUES: Within the superficial soft tissues of the left posterior neck, is a 6.5 x 5 mm rim-enhancing fluid collection with surrounding induration of the soft tissues, corresponding to patient's history. Multiple nonpathologically enlarged or morphologically suspicious lymph nodes are identified within t he bilateral cervical chains. THORACIC INLET/VISUALIZED UPPER CHEST: Unremarkable. SKELETAL: No significant degenerative disease IMPRESSION: Subcentimeter fluid collection corresponding to the area of clinical concern, as detailed above. Reviewed, dictated and finalized at location A. IMPRESSION: Subcentimeter fluid collection corresponding to the area of clinical concern, a s detailed above.
--- OUTSIDE RECORDS SUMMARY | 2024-11-11 10:00 | XMS_ITS | Clinical Summary ---
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 Gender Identity Not on file Sexual Orientation [...] 5:06 PM CDT Height 195.6 cm (6' 5) 10/08/2022 5:06 PM CDT Body Mass Index [...] patient's age to complete this topic Insurance [facility] CHOICE [facility] H[facility]/PPO Address: [address] [place] [address] [facility] CHOICE [facility] H[facility]/PPO Address: [address] [place] [address] Care Teams Adult Education Teacher Relationship Specialty Start Date End Date Sangeetha Mahan PA [address] [place] [address] [place] [address] PCP - General 10/08/22
--- OUTSIDE RECORDS SUMMARY | 2024-11-11 10:00 | XMS_ITS | Data Portability ---
Author Organization [facility], Main Office Address [address] [place] [address] Assessment No assessment recorded. Plan of Treatment Reminders Order Date Submit Date Provider Last Modified By Organization Details Last Modified Time Details Appointments None recorded. Lab vitamin B12 + folate, serum or blood 023 023 [id number] [facility] (Lab), [address] [place], [address], 09:03:20 Referral None recorded. Procedures None recorded. [...] pg/mL will have sympt oms. Not Available [employer] [facility] [address], [place], [address], 02/04/2022 07:10:16 02/04/20 22 02/04/2022 VITAM IN B12/F OLATE , SERUM PANEL folate, serum 11.8 NG/mL normal Refer ence Range Low: <3.4 Borde rline : 3.4-5 .4 Karlene l: >5.4 Not Available [address], [address], 02/04/2022 07:10:16 02/04/20 22 02/04/2022 TSH TSH 2.44 mIU/L 0.40-4 .50 normal Not Available [address], [address], 02/04/2022 07:10:15 02/04/20 22 02/04/2022 CBC (INCL UDES DIFF/ PLT) white blood cell count 9.6 thous and/u L 3.8-10 .8 normal Not Available [address], [address], 02/04/2022 07:10:15 02/04/20 22 02/04/2022 CBC (INCL UDES DIFF/ PLT) red blood cell count 4.68 donald on/uL 4.20-5 .80 normal Not Available [address], [address], 02/04/2022 07:10:15 02/04/20 22 02/04/2022 CBC (INCL UDES DIFF/ PLT) hemoglobin 15.0 g/dL 13.2-1 7.1 normal Not Available [address], [address], 02/04/2022 07:10:15 02/04/20 22 02/04/2022 CBC (INCL UDES DIFF/ PLT) hematocrit 45.2 % 38.5-5 0.0 normal Not Available [address], [address], 02/04/2022 07:10:15 02/04/20 22 02/04/2022 CBC (INCL UDES DIFF/ PLT) MCV 96.6 fL 80.0-1 00.0 normal Not Available [address], [address], 02/04/2022 07:10:15 02/04/20 22 02/04/2022 CBC (INCL UDES DIFF/ PLT) MCH 32.1 pg 27.0-3 3.0 normal Not Available [address], [address], 02/04/2022 07:10:15 02/04/20 22 02/04/2022 CBC (INCL UDES DIFF/ PLT) MCHC 33.2 g/dL 32.0-3 6.0 normal Not Available [address], [address], 02/04/2022 07:10:15 02/04/20 22 02/04/2022 CBC (INCL UDES DIFF/ PLT) RDW 12.4 % 11.0-1 5.0 normal Not Available [address], [address], 02/04/2022 07:10:15 02/04/20 22 02/04/2022 CBC (INCL UDES DIFF/ PLT) platelet count 281 thous and/u L 140-40 0 normal Not Available [address], [address], 02/04/2022 07:10:15 02/04/20 22 02/04/2022 CBC (INCL UDES DIFF/ PLT) MPV 10.8 fL 7.5-12 .5 normal Not Available [address], [address], 02/04/2022 07:10:15 02/04/20 22 02/04/2022 CBC (INCL UDES DIFF/ PLT) absolute neutrophils 6979 cells /uL 1500-7 800 normal Not Available [address], [address], 02/04/2022 07:10:15 02/04/20 22 02/04/2022 CBC (INCL UDES DIFF/ PLT) absolute lymphocytes 2026 cells /uL 850-39 00 normal Not Available [address], [address], 02/04/2022 07:10:15 02/04/20 22 02/04/2022 CBC (INCL UDES DIFF/ PLT) absolute monocytes 509 cells /uL 200-95 0 normal Not Available [address], [address], 02/04/2022 07:10:15 02/04/20 22 02/04/2022 CBC (INCL UDES DIFF/ PLT) absolute eosinophils 58 cells /uL 15-500 normal Not Available [address], [address], 02/04/2022 07:10:15 02/04/20 22 02/04/2022 CBC (INCL UDES DIFF/ PLT) absolute basophils 29 cells /uL 0-200 normal Not Available [address], [address], 02/04/2022 07:10:15 02/04/20 22 02/04/2022 CBC (INCL UDES DIFF/ PLT) neutrophils 72.7 % normal Not Available [address], [address], 02/04/2022 07:10:15 02/04/20 22 02/04/2022 CBC (INCL UDES DIFF/ PLT) lymphocytes 21.1 % normal Not Available [address], [address], 02/04/2022 07:10:15 02/04/20 22 02/04/2022 CBC (INCL UDES DIFF/ PLT) monocytes 5.3 % normal Not Available [address], [address], 02/04/2022 07:10:15 02/04/20 22 02/04/2022 CBC (INCL UDES DIFF/ PLT) eosinophils 0.6 % normal Not Available [address], [address], 02/04/2022 07:10:15 02/04/20 22 02/04/2022 CBC (INCL UDES DIFF/ PLT) basophils 0.3 % normal Not Available [address], [address], 02/04/2022 07:10:15 02/04/20 22 02/04/2022 LIPID PANEL , STAND REYNALDO cholesterol, total 158 mg/dL <200 normal Not Available [address], [address], 02/04/2022 07:10:13 02/04/20 22 02/04/2022 LIPID PANEL , STAND REYNALDO HDL cholesterol 47 mg/dL > or = 40 normal Not Available [address], [address], 02/04/2022 07:10:13 02/04/20 22 02/04/2022 LIPID PANEL , STAND REYNALDO triglyceride s 60 mg/dL <150 normal Not Available [address], [address], 02/04/2022 07:10:13 02/04/20 22 02/04/2022 LIPID PANEL , STAND REYNALDO LDL-choleste rol 96 mg/dL _(yogesh c) normal Refer ence range : <100 [...] 310(1 9): 2061- 2068 (http ://ed ucati on.[employer]imoona [employer]zaneh [employer]/f aq/FA Q164) Not Available [facility] [address], [place], [address], 02/04/2022 07:10:13 02/04/20 22 02/04/2022 LIPID PANEL , STAND REYNALDO chol/HDLC ratio 3.4 (calc ) <5.0 normal Not Available [facility] [address], [place], [address], 02/04/2022 07:10:13 02/04/20 22 02/04/2022 LIPID PANEL , STAND REYNALDO non HDL cholesterol 111 mg/dL _(yogesh c) <130 normal For patie nts with diabe ojlynn plus 1 major ASCVD risk facto r, treat ing to a non-H DL-C goal of <100 mg/dL (LDL- C of <70 mg/dL ) is consi mckenzied a malka woodo n. Not Available [facility] [address], [place], [address], 02/04/2022 07:10:13 05/02/20 22 03/16/2022 home sleep study No observ ation record ed. [id number] [facility] [address] [place], [address], 08/18/2022 01:28:15 Result Notes None recorded. Problems Name Problem SNOMED Code Status Onset Date Resolution Date Notes Provider Name and Address Organization Details Recorded Time Essential hypertension 85065327 Active 2021 Not Available [facility] 3 01:26:27 Sleep apnea 34282196 Active 2021 Not Available [facility] 3 01:26:27 Cobalamin deficiency 687452931 Active 2022 SHANNA Haynes [address] [place] [address], [address] , [facility] [employer] [facility] 3 08:32:32 Gastroesophag eal reflux disease 853128884 Active 2022 SHANNA Haynes [address] [facility], [place] [address], [place], [address] , [facility] [employer] [facility] 3 08:42:33 Upper respiratory infection 17241349 Active 2022 SHANNA Haynes [address] [address], [place], [address] , [facility] [employer] [facility] 3 11:39:06 Problem Notes None recorded. Procedures Surgical History Date Name Laterality Status Provider Name and Address Organization Details Recorded Time tonsilectom y/adenoids completed Not Available [facility] 08/18/2022 01:25:17 Imaging Results None recorded. Procedure Notes None recorded. Medical Equipment None [...] Available Not Available Vitals Date Recorded Body height Body mass index (BMI) Body weight Body temperature Heart rate Oxygen saturation Oxygen saturation in Arterial blood by Pulse oximetry Systolic And Diastolic Provider Name and Address Organization Details Last Updated DateTime 3 195.58 cm 36 kg/m2 110513. 08 g 96.1 [degF] 77 /min 99 % 99 % 120/80 mm[Hg] Tierra Estrada MA [place] [facility] [place] [facility] 3 08:28:41 Date Recorded Body mass index (BMI) Body height Oxygen saturation Oxygen saturation in Arterial blood by Pulse oximetry Heart rate Body temperature Body weight Systolic And Diastolic Provider Name and Address Organization Details Last Updated DateTime 2 36.5 kg/m2 195.58 cm 97 % 97 % 84 /min 97.3 [degF] 161157. 45 g 144/84 mm[Hg] Not Available [facility] 3 01:26:09 Date Recorded Body mass index (BMI) Body height Oxygen saturation Oxygen saturation in Arterial blood by Pulse oximetry Heart rate Body temperature Body weight Systolic And Diastolic Provider Name and Address Organization Details Last Updated DateTime 2 36.6 kg/m2 195.58 cm 99 % 99 % 74 /min 98.1 [degF] 782369. 04 g 128/76 mm[Hg] Not Available [facility] 3 01:26:09 Social History Question Answer Notes LastModified by Organizat ion Details LastModified Time Tobacco Smoking Status Former Smoker Not Available [facility] 08/18/2022 01:24:39 What Is Your Level Of Caffeine Consumption? Moderate [id number] Information not available 08/18/2022 What Type Of Diet Are You Following? REGULAR [id number].955652 1201 Information not available 08/18/2022 What Is The Highest Grade Or Level Of School You Have Completed Or The Highest Degree You Have Received? [id number] [id number].[id number] 8974 Information not available 08/18/2022 Have There Been Any Changes To Your Family Or Social Situation? No [id number].312258 [id number] Information not available 08/18/2022 Do You Use Insect Repellent Routinely? No [id number].051023 1210 Information not available 08/18/2022 Where Do You Live? [place]House MIGRATION.100024 0708 Information not available 08/18/2022 Do You Have Any Pets? Yes MIGRATION.627773 1717 Information not available 08/18/2022 What Is Your Relationship Status? MIGRATION.160229 6032 Information not available 08/18/2022 Do You Use Your Seat Belt Or Car Seat Routinely? Yes MIGRATION.828315 7829 Information not available 08/18/2022 Do You Have Smoke And Carbon Monoxide Detectors In Your Home? Yes MIGRATION.488840 5161 Information not available 08/18/2022 Are You Passively Exposed To Smoke? No MIGRATION.332333 9291 Information not available 08/18/2022 Are There Any Smokers In Your House? No MIGRATION.669859 7236 Information not available 08/18/2022 Do You Participate In Social Media? Yes MIGRATION.458239 3767 Information not available 08/18/2022 Do You Use Sunscreen Routinely? No MIGRATION.891845 2514 Information not available 08/18/2022 Has Tobacco Cessation Counseling Been Provided? No [email or web address] Information not available 09/26/2022 How Many Years Have You Smoked Tobacco? 2 MIGRATION.431313 4142 Information not available 08/18/2022 Are You Currently In School? No MIGRATION.654538 8733 Information not available 08/18/2022 Do You Have Any Dietary Restrictions? No MIGRATION.965598 6308 Information not available 08/18/2022 Sex: Male Functional Status Question Answer Note LastModified by Organizat ion Details LastModified Time Do you use any illicit or recreational drugs? No [email or web address] Information not available 09/26/2022 Do you or have you ever used any other forms of tobacco or nicotine? No [email or web address] Information not available 09/26/2022 What is your level of alcohol consumption? 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 Moderate MIGRATION.87077077 26 Information not available 08/18/2022 Mental Status Question Answer Note LastModified by Organizat ion Details LastModified Time Do you feel stressed (tense, restless, nervous, or anxious, or unable to sleep at night)? [id number] [id number] 6 Information not available 08/18/2022 Family History Relationship Description Onset Age of this Age Resolved Age Notes LastModified by Organization Details LastModified Time Father Hypertensive disorder [id number] Not available 08/18/2022 01:25:21 Father Diabetes mellitus [id number].302 [id number] Not available 08/18/2022 01:25:21 Paternal Grandfather Coronary artery bypass graft MIGRATION.355 [id number] Not available 08/18/2022 01:25:21 Paternal Grandmother Congestive heart failure [id number].833 [id number] Not available 08/18/2022 01:25:21 Medical History No medical history recorded. Past Encounters Encounter ID Performer Location Encounter Start Date Encounter Closed Date Diagnosis/Indication Diagnosis SNOMED-CT Code Diagnosis ICD10 Code Diagnosis Note [id number] [facility] Family Practice Marcelino olson [address] [place] [address] 02/02/2022 00:00:00 02/02/2022 17:40:09 [id number] SHANNA Haynes [facility] Primary Care [place] [address] [facility] [address] [place] [address] 06/03/2022 00:00:00 06/03/2022 08:46:37 [id number] SHANNA Haynes [facility] Primary [place] [address] [facility] [address] [place] [address] 09/26/2022 08:15:25 09/26/2022 08:50:51 Cobalamin deficiency 785115180 E53.8 Has been off injections since July.R echeck labs today. Essential hypertension 36430241 I10 Stable. Gastroesop hageal reflux disease 528796298 K21.9 Stable. Has not needed to take omeprazole . Health Concerns Section Related Observation LastModified by Organization Detai ls LastModified Time None Recorded Concern Status LastModified by Organization Details LastModified Time None Recorded Advance Directives Directive None Recorded Payers Encounter Date Sequence Insurance Name Policy Number Policy Leon Covered Member ID Leon Member ID Guarantor Name 09/26/[address] [facility] [id number] Juan Antonio Dey [id number] Juan Antonio Dey Notes Date Note Type Note Provider Name and Address Organization Details Recorded Time 09/26/2022 text/html Pt. here for routine follow-up. He needs B12 rechecked. Has been off supplement for last 2 months. SHANNA Haynes [address] [place] [address], [facility] [address], [place], [address], [place] [facility] 09/26/2022 08:43:11
--- OUTSIDE RECORDS SUMMARY | 2024-11-11 10:00 | XMS_ITS ---
Author Organization [facility] Address [address] [place], [place] [id number] Care Team Providers Care Foil Stamp Operator Name Role Phone MAMTA Baptiste Unavailable [phone] Jackson Thomason Unavailable Unavailable LATRICE HERRERA Unavailable [phone] REASON FOR VISIT ft doing well Encounters Encounter Location Date Provider Diagnosis [facility] [place] [address] [place], [place] [id number] 12/04/2023 LATRICE HERRERA Plan Of Treatment No Information Progress Notes * ZAYRA SAMANIEGODOB:1995 (29 yo M)Acc No.[id number]:12/04/2023 Patient: ZAYRA GUERRERO Provider: Chase Herrera DPM :1995 A ge:28 Y S ex:Male Date:12/04/2023 Address:[address] [place], [place] [id number] Subjective: * Chief Complaints: * 1 . Ft doing well. * Medical History: Objective: * Vitals: Assessment: Plan: * Treatment: * Billing Information: * Visit Code: * Procedure Codes: * Electronic signature of LATRICE HERRERA DPM on 11/11/2024 at 09:59 AM CDT Sign off status: Pending * Provider: Chase Herrera DPM Date: 12/04/2023 Generated for Printi ng/Faxing/eTransmitting on: 11/11/2024 09:59 AM CDT
--- OUTSIDE RECORDS SUMMARY | 2024-11-11 10:00 | XMS_ITS | Clinical Summary ---
Author Organization [facility] Care Team Providers Care Blood Or Blood Bank Technician Name Role Phone Unavailable Primary Care Provider [...]
--- OUTSIDE RECORDS SUMMARY | 2024-11-11 10:00 | XMS_ITS | Patient Health Record ---
Author Organization [facility] Address [address] [place], [place] [id number] Care Team Providers Care Sourcing Coordinator Name Role Phone HemalathaMAMTA goode Unavailable [phone] Jackson Thomason Unavailable Unavailable LATRICE HERRERA Unavailable [phone] Allergies No Known Allergies Reason For Referral [...] Insured Coverage Start Date Coverage End Date [facility] [address] [address] [place] [id number] ZAYRA SAMANIEGO Self - patient is the insured
--- OUTSIDE RECORDS SUMMARY | 2024-11-11 10:00 | XMS_ITS | Referral Summary ---
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
[2024-11-11 10:05] VITALS: BP 141/81; PULSE 85; RESP 14; TEMP 37.2; O2SAT 100
[2024-11-11 12:03] VITALS: BP 134/84; PULSE 75; RESP 18; O2SAT 100
--- OUTSIDE RECORDS SUMMARY | 2024-11-11 12:23 | XMS_ITS | Referral Summary ---
Author Organization 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
--- OUTSIDE RECORDS SUMMARY | 2024-11-11 12:23 | XMS_ITS | Clinical Summary ---
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 PLUS Care Teams Iron Plastic Bullet Maker Relationship Specialty Start Date End Date Sangeetha Mahan PA [address] [place] [address] [place] [address] PCP - General 10/08/22
--- OUTSIDE RECORDS SUMMARY | 2024-11-11 12:23 | XMS_ITS | Clinical Summary ---
Author Organization [facility] Care Team Providers Care Shingle Bolt Cutter Name Role Phone Unavailable Primary Care Provider [...]
--- NOTE | 2024-11-11 12:24 | ED_ITS ---
HPI - Skin/Abscess/Foreign Bdy General Chief complaint: Skin/Abscess/Foreign Body Stated complaint: swollen lymph nodes from neck abscess Time Seen by Provider: 11/11/24 12:07 Source: patient Mode of arrival: ambulatory Limitations: no limitations History of Present Illness HPI narrative: 29 years old white male with history of hypertension developed a pimple like lesion on the left side of the back of his neck 1 week ago, few days later was seen at urgent care and started on sulfa medications, 3 days ago came to our emergency room for the same problem and started on IV antibiotic, and was discharged on Keflex plus to continue sulfa. Today patient reported that the lesion is getting worse, leaking pus. He denies any fever, chills, nausea, vomiting or history of diabetes. Related Data Home Medications ?Medication ?Instructions ?Recorded ?Confirmed ?Last Taken ?Type Metamucil Fiber Pills BYMOUTH 02/09/23 02/13/24 Unknown History Allergies Allergy/AdvReac Type Severity Reaction Status Date / Time No Known Allergies Allergy Verified 11/11/24 10:03 Review of Systems 2 Review of Systems: All systems reviewed & are unremarkable except as noted in HPI and below PMFSH Past Medical History Medical History Shortness of breath GERD (gastroesophageal reflux disease) Hypertension Acute suppur right otitis media w/o spontan rupture tympanic membrane Family History Family History Father Diabetes mellitus Hypertension Sibling Diabetes mellitus Heart disease Grandparent Diabetes mellitus Grandparent Diabetes mellitus Hypertension Depression Social History Social History Smoking status: Never smoker Lack of Transportation: No Lack of Food: Never True Current Housing: I Have Housing Concerned About Future Housing: No Difficulty Paying Gas/Electric Bills: No Difficulty Paying for Meds: No Currently Unemployed: No Education: Associate Degree Difficulty w/ Childcare or Family Care: No Living arrangements: with family Additional living arrangements comments: and 2 children Gender identity (if verbalized by the patient): Male Agree to blood products: Yes Exam 2 Narrative: General appearance: Well-developed, well-nourished Skin: Normal color Head: Normocephalic, nontraumatic Eyes: Clear conjunctiva ENT: Oropharynx normal, ears normal, nose normal, tender left neck lymphadenopathy Neck: Supple, large hard, indurated skin with multiple openings leaking purulent discharge at the neck posteriorly and laterally roughly 5 cm x 5 cm, diffusely tender, erythematous Chest and respiratory: Airway patent, no respiratory distress, no accessory muscle use Heart: Regular rate/rhythm Musculoskeletal: Normal range of motion, nontender back Neurologic: Alert and oriented ?3, UNDER CUTTING MACHINE OPERATOR is normal as tested, no gross motor deficit Course Vital Signs Vital signs: Vital Signs Temperature 37.2 C 11/11/24 10:05 Pulse Rate 85 11/11/24 10:05 Respiratory Rate 14 11/11/24 10:05 Blood Pressure 141/81 H 11/11/24 10:05 Pulse Oximetry 100 11/11/24 10:05 Temperature 37.2 C 11/11/24 10:05 Pulse Rate 75 11/11/24 12:03 Respiratory Rate 18 11/11/24 12:03 Blood Pressure 134/84 11/11/24 12:03 Pulse Oximetry 100 11/11/24 12:03 Procedures Abscess I/D neck: Date of Incision: 11/11/24 Time of Incision: 14:54 Side (if applicable): left Sedation/analgesia: none Local Anesthetic: lidocaine 1% and with epi Amount of anesthesia used (mL): 5 Technique: incised with #11 blade Amount of fluid expressed (mL): 8 Irrigation: No Packing used?: iodoform I&D Results: Pus and Blood Complications: pain MDM - Skin/Abscess/Foreign Bdy MDM Narrative Medical decision making narrative: Patient came with abscess at the left neck posteriorly, Incision and drainage, 8 mL purulent discharge with blood, packed with iodoform, Discharged on Tylenol, ibuprofen as needed and continue home sulfa and Keflex. Differential Diagnosis Differential diagnosis: Likely other (Abscess) Lab Data Attestation: I reviewed the patient's lab results. 11/11/24 12:38 11/11/24 12:38 Labs: Lab Results 11/11/24 Range/Units 12:38 WBC 16.6 H (4.5-10.0) K/mm3 RBC 4.57 L (4.6-6.20) M/mm3 Hgb 15.0 (14.0-18.0) g/dL Hct 44.6 (42.0-52.0) % MCV 97.6 (80-100) fl MCH 32.8 (26-34) pg MCHC 33.6 (32-36) g/dl RDW 12.5 (11.5-14.5) % Plt Count 264 (150-375) k/mm3 MPV 10.1 (7.4-10.4) fl Immature Gran % (Auto) 0.4 (0-0.5) % Neut % (Auto) 87.0 H (45.5-73.1) % Lymph % (Auto) 7.0 L (18.3-44.2) % [place] % (Auto) 5.1 (2.6-8.5) % Eos % (Auto) 0.3 (0-4.4) % Baso % (Auto) 0.2 (0.2-1.2) % Lymph # (Auto) 1.16 (0.9-3.2) K/mm3 [place] # (Auto) 0.8 H (0.1-0.6) K/mm3 Eos # (Auto) 0.1 (0-0.3) K/mm3 Baso # (Auto) 0.0 (0.0-0.1) K/mm3 Abs Immat Gran (auto) 0.07 H (0.00-0.031) K/mm3 Absolute Neuts (auto) 14.5 H (1.3-6.7) K/mm3 Absolute Nucleated RBC 0.000 (0.0-0.012) K/mm3 Nucleated RBC % 0.0 (0.0-0.2) % Sodium 141 (137-145) mmol/L Potassium 4.1 (3.4-5.0) mmol/L Chloride 105 (98-107) mmol/L Carbon Dioxide 26 (22-30) mmol/L Anion Gap 10 (4-12) mmol/L BUN 9 D (9-20) mg/dL Creatinine 0.86 (0.7-1.3) mg/dL Estim Creat Clear Calc 159 ml/min Estimated GFR > 60 (59 - ) Glucose 93 (65-110) mg/dL Calcium 9.6 (8.4-10.2) mg/dL Total Bilirubin 0.7 (0.2-1.3) mg/dL AST 43 (17-59) U/L ALT 44 (6-50) U/L Alkaline Phosphatase 72 (38-126) U/L C-Reactive Protein 2.9 H (<1.0) mg/dL Total Protein 8.0 (6.3-8.2) g/dL Albumin 4.6 (3.5-5.1) g/dL Imaging Data Radiologist's impression: Impressions Soft Tissue Neck CT 11/11/24 13:41 IMPRESSION: Subcentimeter fluid collection corresponding to the area of clinical concern, as detailed above. Critical Care Time Critical Care Time Critical Care Time: No Discharge Plan Discharge Clinical Impression: Abscess Patient Disposition: Home Condition: Stable Instructions: Abscess (ED) Additional Instructions: Return if symptoms are worsening , call surgeon for appointment, take Tylenol as as needed for aches and pain, continue home medications. Remove packing in 48 hours Patient Language: Moldovan Prescriptions: No Action Metamucil Fiber Pills BYMOUTH Rx Instructions: 5 pills 3 times a day. cephalexin 500 mg capsule 500 mg PO Q8H 5 Days Qty: 15 0RF ibuprofen 600 mg tablet 600 mg PO TID PRN (Reason: pain) Qty: 30 0RF acetaminophen 500 mg capsule 1,000 mg PO Q6H PRN (Reason: pain) Qty: 30 0RF albuterol sulfate 90 mcg/actuation HFA aerosol inhaler 2 inh inhalation Q4-6H PRN (Reason: shortness of breath or wheezing) Qty: 8.5 1RF lisinopril 5 mg tablet See Rx Instructions .ROUTE .COMPLEX Qty: 90 3RF Dose Instruction: TAKE 1 TABLET DAILY Rx Instructions: TAKE 1 TABLET DAILY Follow-up/Referrals: Nicki Leo APRN [Primary Care Provider] - Mitchell Guerra DO [Physician] - 11/13/24
--- NOTE | 2024-11-11 12:41 | PC.NURSE ---
NOEMI from Dr. Regalado to hold off on pain medication until he goes in to drain abscess.
[2024-11-11 12:45] LABS: Basophils Percent Auto 0.2 % (0.2-1.2); Eosinophils Absolute Auto 0.1 K/mm3 (0-0.3); Eosinophils Percent Auto 0.3 % (0-4.4); Hematocrit 44.6 % (42.0-52.0); Immature Granulocyte Absolute 0.07 K/mm3 (0.00-0.031); Immature Granulocyte Percent A 0.4 % (0-0.5); Lymphocytes Absolute Auto 1.16 K/mm3 (0.9-3.2); Mean Corpuscular HGB Conc 33.6 g/dl (32-36); Mean Corpuscular Hemoglobin 32.8 pg (26-34); Mean Corpuscular Volume 97.6 fl (80-100); Mean Platelet Volume 10.1 fl (7.4-10.4); Monocytes Absolute Auto 0.8 K/mm3 (0.1-0.6); Monocytes Percent Auto 5.1 % (2.6-8.5); Neutrophils Absolute Auto 14.5 K/mm3 (1.3-6.7); Platelet Count Result 264 k/mm3 (150-375); Red Blood Count 4.57 M/mm3 (4.6-6.20); Red Cell Distribution Width 12.5 % (11.5-14.5); White Blood Count 16.6 K/mm3 (4.5-10.0)
[2024-11-11 12:57] LABS: Alanine Aminotransferase 44 U/L (6-50); Albumin Level 4.6 g/dL (3.5-5.1); Alkaline Phosphatase 72 U/L (38-126); Anion Gap 10 mmol/L (4-12); Aspartate Amino Transferase 43 U/L (17-59); Bilirubin,Total 0.7 mg/dL (0.2-1.3); Blood Urea Nitrogen 9 mg/dL (9-20); Calcium 9.6 mg/dL (8.4-10.2); Carbon Dioxide 26 mmol/L (22-30); Chloride 105 mmol/L (98-107); Estimated CRCL calculation 159 ml/min; Estimated Glomerular Filt Rate > 60; Glucose 93 mg/dL (65-110); Potassium 4.1 mmol/L (3.4-5.0); Sodium 141 mmol/L (137-145)
[2024-11-11 13:22] LABS: CRP 2.9 mg/dL (<1.0)
[2024-11-11] MEDS: ONDANSETRON INJ 4 MG/2 ML VIAL IV PUSH (14:14)
[2024-11-11] MEDS: HYDROmorphone HCL INJ (*CRX) 2 MG/ML VIAL 0.5 MG IV PUSH (14:14)
[2024-11-11 15:13] VITALS: BP 131/78; PULSE 72; RESP 16; O2SAT 98
== END 2024-11-11 15:15 | disposition home or self-care (01) ==
PROVIDERS: Emergency Provider Emergency Medicine; PCP Nurse Practitioner Adult Health
DX: L02.11 Cutaneous abscess of neck (principal); I10 Essential (primary) hypertension; K21.9 Gastro-esophageal reflux disease without esophagitis; Z79.899 Other long term (current) drug therapy
CPT/HCPCS: 10061; 36415; 70491; 80053; 85025; 86140; 87070; 87075; 87181; 87205; 96374; 96375; 99284; J1171; J2004; J2405; Q9967

== ENCOUNTER 2025-03-31 08:05 | Outpatient (CLI) | payer OTHER, SELFPAY ==
--- OUTSIDE RECORDS SUMMARY | 2023-12-04 11:30 | XMS_ITS ---
Author Organization [facility] Address [address] [place], [place] [id number] Care Team Providers Care Magnetic Resonance Technologist Name Role Phone MAMTA Baptiste Unavailable [phone] Jackson Thomason Unavailable Unavailable LATRICE HERRERA Unavailable [phone] REASON FOR VISIT ft doing well Encounters Encounter Location Date Provider Diagnosis [facility] [place] [address] [place], [place] [id number] 12/04/2023 LATRICE HERRERA Plan Of Treatment No Information Progress Notes * ZAYRA SAMANIEGODOB:1995 (29 yo M)Acc No.[id number]:12/04/2023 Patient: ZAYRA GUERRERO Provider: Chase Herrera DPM :1995 A ge:28 Y S ex:Male Date:12/04/2023 Address:[address] [place], [place] [id number] Subjective: * Chief Complaints: * 1 . Ft doing well. * Medical History: Objective: * Vitals: Assessment: Plan: * Treatment: * Billing Information: * Visit Code: * Procedure Codes: * Electronic signature of LATRICE HERRERA DPM on 03/31/2025 at 08:13 AM CDT Sign off status: Pending * Provider: Chase Herrera DPM Date: 0 12/04/2023 Generated for Printi ng/Faxing/eTransmitting on: 1 08:13 AM CDT
--- OUTSIDE RECORDS SUMMARY | 2025-03-31 08:13 | XMS_ITS | Clinical Summary ---
Author Organization 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 Care Teams Inseminator Relationship Specialty Start Date End Date Sangeetha Mahan PA [address] [place] [address] [place] [address] PCP - General 10/08/22
--- OUTSIDE RECORDS SUMMARY | 2025-03-31 08:13 | XMS_ITS | Clinical Summary ---
Author Organization [facility] Care Team Providers Care Airport Representative Name Role Phone Unavailable Primary Care Provider [...] 3 - 3-dose series) 04/01/1994 02/04/1994, 1993 Human Papillomavirus (HPV) Immunization (1 - 3-dose SCDM series) 2020 Influenza Immunization (#1) 2025 SARS-COV-2 Immunization ( season) 2025 Respiratory Syncytial Virus (RSV) Immunization (Adult) (1 [...]
--- OUTSIDE RECORDS SUMMARY | 2025-03-31 08:13 | XMS_ITS | Clinical Summary ---
Author Organization [facility] Address [address] [place] [id number] Care Team Providers Care Adapted Physical Education Specialist Name Role Phone Jackson Thomason MD Primary Care Provider Unav ailable Allergies No known active allergies Medications famotidine 20 MG tablet Take 1 tablet (20 mg total) by mouth 2 (two) times daily. 30 tablet 07/14/2021 Active Active Problems Problem Noted Date Diagnosed Date Palpitations 08/09/2021 Tachycardia 07/13/2021 Tachycardia Immunizations Immunization Administration Dates Next Due Dtp (Generic) 1993,1993,1993 Dtp/Hib (Tetramune) 09/08/1994 Hepatitis B Pediatric 02/04/1994,1993 Hib (Generic) 1993,1993,1993 MMR (MMRII) 05/06/1994 Meningococcal (Generic) 01/28/2008 Polio Opv (Generic) 1993,1993,1993 Tdap (Generic) 08/10/2019,01/28/2008 Family History Medical History Relation Comments Hypertension Brother 1 No Known Problems Brother 2 Diabetes Father Hypertension Father No Known Problems Mother CABG Paternal Grandfather No Known Problems Son Relation Status Comments Brother 1 Alive Brother 2 Alive Father Alive Mother Alive Paternal Grandfather Alive Son Alive Social History Tobacco Use Types Packs/Day Years Used Date Smoking Tobacco: Former Cigars Q uit: 2013 Smokeless Tobacco: Never Tobacco Cessation:Counseling Given: No Alcohol Use Standard Drinks/Week Comments Not Currently 0 (1 standard drink = 0.6 oz pur e alcohol) occ PHQ-2 Answer Date Recorded PHQ-2 Score - If the patient scores above 3, please move on to questions 3-9 3 08/09/2021 Sex and Gender Information Value Date Recorded Sex Assigned at Not on file Legal Sex Male 11:48 PM LEGAL SUPPORT ANALYST Gender Identity Not on file Sexual Orientation Not on file Last Filed Vital Signs Vital Sign Reading Time Taken Comments Blood Pressure 118/76 08/09/2021 11:43 AM LEGAL SUPPORT ANALYST Pulse 75 08/09/2021 11:43 AM LEGAL SUPPORT ANALYST Temperature 36.8 C (98.3 F) 08/09/2021 11:43 AM LEGAL SUPPORT ANALYST Respiratory Rate 17 08/09/2021 11:4 3 AM LEGAL SUPPORT ANALYST Oxygen Saturation 99% 08/09/2021 11: 43 AM LEGAL SUPPORT ANALYST Inhaled Oxygen Concentration - - Weight 141.8 kg (312 lb 9.6 oz) 022 11:43 AM LEGAL SUPPORT ANALYST Height 198.1 cm (6' 6) 08/09/2021 11:4 3 AM LEGAL SUPPORT ANALYST Body Mass Index 36.12 08/09/2021 11:43 AM LEGAL SUPPORT ANALYST Plan of Treatment Health Maintenance Due Date Last Done Comments Hepatitis B Vaccines (3 of 3 - 3-dose series) 04/01/1994 02/04/1994, 1993 Annual Physical 1996 Hepatitis C 2011 HPV Vaccines (1 - 3-dose SCDM series) 2020 COVID-19 Vaccine ( season) 2025 Influenza Adult (#1) 2025 DTaP, Tdap and Td Vaccines (6 - Td or Tdap) 08/10/2029 08/10/2019, 01/28/2008, 09/08/1994, Additional history exists Meningococcal Vaccine Aged Out 01/28/2008 No momo annelise eligible based on patient's age to complete this topic Meningococcal B Vaccine Aged Out No l onger eligible based on patient's age to complete this topic Pneumococcal Vaccine: Pediatrics (0 to 5 Years) and At-Risk Patients (6 to 49 Years) Aged Out No longer eligible based on patient's age to complete this topic RSV Immunizations Under 20 Months Aged Out No longer eligible based on patient's age to complete this topic Insurance [facility] Care Teams Adapted Physical Education Specialist Relationship Specialty Start Date End Date Jackson Thomason MD PCP - General FAMILY PRACTICE 07/14/21
--- OUTSIDE RECORDS SUMMARY | 2025-03-31 08:13 | XMS_ITS | Patient Health Record ---
Author Organization [facility] Address [address] [place], [place] [id number] Care Team Providers Care Dispute Resolution Analyst Name Role Phone HemalathaMAMTA goode Unavailable [phone] Jackson Thomason Unavailable Unavailable Allergies No Known Allergies Reason For Referral [...] Insured Coverage Start Date Coverage End Date [facility] [address] [address] [place] [address] [id number] ZAYRA SAMANIEGO Self - patient is the insured
[2025-03-31 08:27] LABS: Hematocrit 41.3 % (42.0-52.0); Hemoglobin 13.8 g/dL (14.0-18.0); Immature Granulocyte Percent A 0.4 % (0-0.5); Lymphocytes Absolute Auto 2.17 K/mm3 (0.9-3.2); Mean Corpuscular HGB Conc 33.4 g/dl (32-36); Mean Corpuscular Hemoglobin 32.5 pg (26-34); Mean Corpuscular Volume 97.2 fl (80-100); Nucleated Red Blood Cells Absolute Auto 0.000 K/mm3 (0.0-0.012); Nucleated Red Blood Cells Perc 0.0 % (0.0-0.2); Platelet Count Result 264 k/mm3 (150-375); Red Blood Count 4.25 M/mm3 (4.6-6.20); White Blood Count 7.9 K/mm3 (4.5-10.0)
[2025-03-31 08:51] LABS: Alanine Aminotransferase 32 U/L (6-50); Albumin Level 4.2 g/dL (3.5-5.1); Alkaline Phosphatase 54 U/L (38-126); Anion Gap 7 mmol/L (4-12); Aspartate Amino Transferase 28 U/L (17-59); Bilirubin,Total 0.5 mg/dL (0.2-1.3); Blood Urea Nitrogen 16 mg/dL (9-20); Calcium 9.3 mg/dL (8.4-10.2); Carbon Dioxide 25 mmol/L (22-30); Chloride 106 mmol/L (98-107); Cholesterol 154 mg/dL (0-200); Estimated Glomerular Filt Rate > 60; Glucose 93 mg/dL (65-110); HDL Direct 39 mg/dL; Magnesium 1.9 mg/dL (1.6-2.3); Potassium 4.3 mmol/L (3.4-5.0); Sodium 138 mmol/L (137-145); Total Protein 7.0 g/dL (6.3-8.2); Triglycerides 128 mg/dL (<150)
[2025-03-31 09:44] LABS: Vitamin B12 392.0 pg/mL (239-931)
== END 2025-03-31 08:06 | disposition home or self-care (01) ==
LOC: ANHLAB 08:06
PROVIDERS: PCP Nurse Practitioner Adult Health; Visit Provider Nurse Practitioner Adult Health
DX: E53.8 Deficiency of other specified B group vitamins (principal); I10 Essential (primary) hypertension
CPT/HCPCS: 36415; 80053; 80061; 82607; 83735; 85025